=== PATIENT | male | born 1975 | race Caucasian/White ===

== ENCOUNTER 2021-10-10 19:05 | Emergency (ER) | payer OTHER, BC, SELFPAY ==
[2021-10-10 19:11] VITALS: BP 179/99; PULSE 81; RESP 18; TEMP 36.7; O2SAT 97; BMI 37.3
[2021-10-10] MEDS: Ibuprofen 600 MG TABLET PO (19:18)
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
== END 2021-10-10 22:38 | disposition home or self-care (01) ==
PROVIDERS: Emergency Provider Emergency Medicine Emergency Medical Services
DX: Z04.1 Encounter for examination and observation following transport accident (principal); M54.6 Pain in thoracic spine
CPT/HCPCS: 99282; 99283

== ENCOUNTER 2023-04-21 12:43 | Emergency (ER) | payer OTHER, SELFPAY ==
[2023-04-21 12:53] VITALS: BP 120/99; PULSE 92; RESP 20; TEMP 37.2; O2SAT 97; BMI 39.0
--- NOTE | 2023-04-21 12:54 | ED_ITS ---
HPI - General Adult General Chief complaint: Ear Problems Stated complaint: B/L Ear Infection Sore Throat Time Seen by Provider: 04/21/23 12:57 Source: patient Mode of arrival: ambulatory Limitations: no limitations History of Present Illness HPI narrative: Patient is a 47 year old assigned male at with no reported medical history presenting to the emergency department today with bilateral ear pain. Patient s tates that over the last 3 weeks he has felt like both of his ears are clogged and painful. Patient denies any dizziness, lightheadedness, abdominal pain, nausea, vomiting, fever, chills, blurry vision, double vision, loss of vision, chest pain, difficulty breathing, shortness of breath, back pain, night sweats, pain with urination, increased urinary frequency, increased urinary urgency, blood in his urine or stool, syncope or a near syncopal episode, recent trauma or falls, bowel incontinence, bladder incontinence, bowel retention, bladder retention, or any other complaints at this time. Onset (ago): week(s) (3) Severity: mild Relieving factors: none Exacerbating factors: none Associated symptoms: denies other symptoms Treatments prior to arrival: none Related Data Previous Rx's Medication Instructions Recorded ibuprofen 400 mg tablet 400 mg PO Q6H PRN pain #20 tabs 10/10/21 ciprofloxacin HCl 0.2 % ear drops 5 drp otic (ear) left BID 7 days 04/21/23 in a dropperette #14 ea doxycycline hyclate 100 mg tablet 100 mg PO BID 7 days #14 tabs 04/21/23 Allergies Allergy/AdvReac Type Severity Reaction Status Date / Time No Known Allergies Allergy Verified 10/10/21 19:11 Review of Systems Constitutional: Constitutional: Reports no additional constitutional complaints, Denies chills, Denies fever(s) and Denies night sweats Eyes: Eyes: Reports no additional eye complaints, Denies blurry vision, Denies change in vision, Denies diplopia, Denies eye discharge, Denies loss of vision and Denies eye pain ENT: Denies dizziness Comments: bilateral ear pain Cardiovascular: Cardiovascular: Reports no additional cardiovascular complaints, Denies chest pain, Denies lightheadedness, Denies Loss of Consciousness and Denies dyspnea Respiratory: Respiratory: Reports no additional respiratory complaints and Denies dyspnea Gastrointestinal: Gastrointestinal: Reports no additional gastrointestinal complaints, Denies abdominal pain, Denies melena, Denies hematochezia, Denies change in bowel habits and Denies change in stool character Genitourinary: Genitourinary: Reports no additional male genitourinary complaints, Denies hematuria, Denies oliguria, Denies difficulty urinating, Denies dysuria, Denies urinary frequency, Denies urinary hesitancy, Denies urinary incontinence and Denies urinary urgency Musculoskeletal: Musculoskeletal: Reports no additional musculoskeletal complaints, Denies numbness and Denies tingling Neurologic: Denies dizziness, Denies loss of vision, Denies numbness and Denies tingling Psychiatric: Psychiatric: Reports no additional psychiatric complaints Endocrine: Endocrine: Reports no additional endocrine complaints Hematologic/Lymphatic: Hematologic/Lymphatic: Reports no additional hematologic/lymphatic complaints Allergic/Immunologic: Allergic/Immunologic: Reports no additional allergic/immunologic complaints PMFSH Past Medical History Attestation statement: The following information was validated with the patient. Source: old records reviewed and nursing notes reviewed Social History Social History Advance Directives: No Advance Directives Information Provided: No Physical Exam ED Vital Signs: Vital Signs - 24 hr 04/21/23 12:53 Temperature 98.9 F Pulse Rate 92 Respiratory Rate 20 Blood Pressure 120/99 H Pulse Oximetry 97 Oxygen Delivery Method Room Air BMI result Body Mass Index 39.0 Const General: cooperative, no acute distress, alert and awake Nutritional Appearance: well nourished Orientation/consciousness: patient oriented x3 Limitations: no limitations HENMT Head: Yes normal to inspection and Yes atraumatic Ears: hearing grossly normal bilaterally, external ears normal and Abnormal EAC present edema on the left General nose exam: Normal external nose present, no nasal discharge noted and no epistaxis Face and sinus: Yes normal facial exam, No abrasion and No laceration Mouth: Normal oral and palatal mucosa present, no drooling and no muffled voice Eyes General: appearance normal, both eyes and all related structures Periorbital: periorbital findings normal Eyelids: Yes eyelids normal Conjunctivae: conjunctivae normal Pupils: Equal, round and reactive pupils present EOM: EOMs intact bilaterally Neck Neck: Yes normal visual inspection, Yes full ROM and Yes no lymphadenopathy Chest Chest palpation & inspection: normal inspection of the chest Resp Effort & Inspection: normal respiratory effort and able to speak in complete sentences GI Inspection: Yes normal to inspection Neuro General: patient oriented x3 and moves all extremities Cranial nerves: Yes Equal, round and reactive pupils present Cognition (Neuro): normal cognition Motor exam (neuro): 5/5 motor strength present throughout Sensory Exam: Normal double simultaneous stimulation for sensation Coordination: [id number] test normal Extrem General: Yes normal to inspection, Yes full ROM and Yes capillary refill normal Psych Appearance: grossly normal Mental Status: mental status grossly normal Affect: normal affect Attitude: cooperative Thought process: Normal thought process present Thought content: Normal thought content present Insight: Good insight present (Psych) Medical Decision Making Medical Decision Making MDM Narrative: Patient is a 47 year old assigned male at with no reported medical history presenting to the emergency department today with bilateral ear pain. Patient's physical exam showed a swollen left ear canal and nasal congestion. Patient's clinical presentation is most consistent with otitis externa of the left ear and sinusitis. I explained my physical exam findings to the patient. I answered all questions asked by the patient. I stressed the importance of the patient taking his medication as prescribed. I stressed the importance of the patient following up with his primary care provider and an ENT. I stressed the importance of the patient returning to the emergency department immediately if his symptoms were to worsen or if he were to develop any dizziness, shortness of breath, difficulty breathing, chest pain, blurry vision, loss of vision, nausea, vomiting, abdominal pain, fever, chills, back pain, or any other complaints. Patient verbalized agreement and understanding with this treatment plan and discharge. Differential Diagnosis Differential Diagnoses: The differential diagnosis associated with the presentation includes Left ear pain Right ear pain Nasal congestion Otitis media Otitis externa Sinusitis Prescription Management I considered prescription management with: Antibiotic (patient prescribed an antibiotic for his sinusitis and a drop for his otitis externa) Discharge Plan Discharge Clinical Impression: Otitis externa, Sinusitis Patient Disposition: Home, Self-Care Instructions: Sinusitis (ED), Otitis Externa (DC) Additional Instructions: Follow up with your primary care provider and an ENT. Return to the emergency department immediately if your symptoms worsen or if you develop any dizziness, shortness of breath, difficulty breathing, chest pain, blurry vision, loss of vision, nausea, vomiting, abdominal pain, fever, chills, back pain, or any other complaints. Prescriptions: New doxycycline hyclate 100 mg tablet 100 mg PO BID 7 Days Qty: 14 0RF ciprofloxacin HCl 0.2 % dropperette 5 drp otic (ear) left BID 7 Days Qty: 14 0RF No Action ibuprofen 400 mg tablet 400 mg PO Q6H PRN (Reason: pain) Qty: 20 0RF Referrals: [facility] [place] Family Medicine [Provider Group] (Call to establish and follow up with a primary care provider. If you already have a primary care provider, please follow up with them.) [facility] [place] Primary Care, Andrei [Provider Group] (Call to establish and follow up with a primary care provider. If you already have a primary care provider, please follow up with them.) [facility] [place] Primary Care,Natan [Provider Group] (Call to establish and follow up with a primary care provider. If you already have a primary care provider, please follow up with them.) Elvis Buchanan [Physician] - (Call to establish and follow up with an ENT specialist) Interventions: ED Discharge Assessment Last Done: 04/21/23 13:07 Discharge Date/Time: 04/21/23 13:07 Print Language: Setswana
== END 2023-04-21 13:07 | disposition home or self-care (01) ==
PROVIDERS: Emergency Provider Emergency Medicine Emergency Medical Services
DX: H92.03 Otalgia, bilateral (principal); J32.9 Chronic sinusitis, unspecified; Z79.899 Other long term (current) drug therapy
CPT/HCPCS: 99282; 99283

== ENCOUNTER 2023-11-04 11:33 | Emergency (ER) | payer OTHER, SELFPAY ==
[2023-11-04 11:37] VITALS: BP 162/113; PULSE 78; RESP 18; TEMP 36.7; O2SAT 96; BMI 43.8
--- NOTE | 2023-11-04 11:38 | ED.UPPEXIN ---
HPI - Extremity Injury (Upper) General Chief Complaint: Extremity Injury, Upper Stated Complaint: bi lateral forearm pain, no injury Source: patient Mode of arrival: ambulatory Limitations: no limitations History of Present Illness ED Provider: SHITAL BERGER PA-C HPI narrative: 48-year-old male with no significant PMHX presents to the ED today for evaluation of bilateral wrist pain x2 days. Reports numbness to his fingers along with shooting pain originating in his wrists. No radiation up the extremities. Pain is exacerbated with movement of the wrists. Pain is worse at night while sleeping. He reports difficulty grasping objects. Denies injury or trauma. 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 Denies fever, chills, joint pain/ swelling. Of note, patient hypertensive in triage however states he did not take his BP medications this morning. He also took 3 motrin prior to arrival which is likely elevating his BP. He denies headache, dizziness, vision changes, chest pain, palpitations, SOB. Related Data Previous Rx's ?Medication ?Instructions ?Recorded ibuprofen 400 mg tablet 400 mg PO Q6H PRN pain #20 tabs 10/10/21 ciprofloxacin HCl 0.2 % ear drops 5 drp otic (ear) left BID 7 days 04/21/23 in a dropperette #14 ea doxycycline hyclate 100 mg tablet 100 mg PO BID 7 days #14 tabs 04/21/23 gabapentin 100 mg capsule 100 mg PO BID 2 weeks #28 caps 11/04/23 Allergies Allergy/AdvReac Type Severity Reaction Status Date / Time No Known Allergies Allergy Verified 11/04/23 11:37 Review of Systems Review of Systems: Constitutional: No fever, chills, fatigue, night sweats, weight changes ENT/Mouth: No ear pain, hearing loss, nasal congestion, sinus pain, rhinorrhea, sore throat Eyes: No eye pain, swelling, redness, vision changes, discharge Cardio: No chest pain, palpitations, SPEARS, orthopnea, peripheral edema Pulm: No SOB, cough, sputum, wheezing, dyspnea, hemoptysis GI: No nausea, vomiting, hematemesis, abdominal pain, diarrhea, constipation, hematochezia, melena : No irregular bleeding, dysuria, frequency, urgency, hesitancy, hematuria, flank pain, urinary flow changes, urinary incontinence or retention MSK: No back pain, neck pain, joint pain, myalgias, +bilateral wrist pain Skin: No lesions, rashes Neuro: No weakness, paresthesias, LOC, dizziness, headache, +numbness Psych: No anxiety/panic, depression, SI/HI, AH/VH All other systems reviewed and are negative. [facility] Past Medical History Attestation statement: The following information was validated with the patient. Source: old records reviewed and nursing notes reviewed Physical Exam Vital Signs: Vital Signs: patient hypertensive, vitals otherwise wnl Const: General: cooperative, healthy appearing, comfortable and no acute distress Orientation/consciousness: patient oriented x3 Limitations: no limitations HEENT: Head: Yes normal to inspection, Yes No palpable skull fracture present, Yes normocephalic and Yes atraumatic Eyes: General: appearance normal, both eyes and all related structures Pupils: Equal, round and reactive pupils present Neck: Neck: Yes normal visual inspection, Yes full ROM and Yes no lymphadenopathy Resp: Effort & Inspection: normal respiratory effort and able to speak in complete sentences Cardio: Rate: regular rate Rhythm: regular rhythm Back/Spine/Pelvis: Other: No midline spinous tenderness or step off deformity. No paraspinal muscle tenderness. Skin: General skin exam: no rashes or lesions noted Neuro: Other: + no overlying skin changes, swelling, or deformity noted to bilateral wrists/hands. No tenderness to palpation. No palpable warmth, crepitus, fluctuance. bilateral clinical product specialist strength 4/5. positive tinel and phalen sign. FROM to bilateral wrists and digits intact. sensation intact. no thenar atrophy. 2+ radial/ulnar pulses intact bilaterally General: patient oriented x3 Cranial nerves: Yes Equal, round and reactive pupils present Course Course Course Narrative: 1150-- patient's physical exam is consistent with carpal tunnel syndrome. Wrist braces supplied. Will send gabapentin to pharmacy for pain. Advised to take Tylenol. Neurology referral provided for follow-up. Patient is noted to be hypertensive however is asymptomatic at this time. advised to avoid motrin as this can further elevate his BP. Patient has remained stable throughout ED visit today. Discussed worrisome signs and symptoms and when to return to the ED. All questions answered at this time. Patient is agreeable with disposition and stable for discharge. Medical Decision Making Medical Decision Making MDM Narrative: 48-year-old male with no significant PMHX presents to the ED today for evaluation of bilateral wrist pain x2 days. Patient hypertensive to 162/113 however did not take his BP meds and is noted to have taken 3 motrin [place] in ED, likely elevating his BP. He is asymptomatic. On exam of extremities, no overlying skin changes, swelling, or deformity noted to bilateral wrists/hands. No tenderness to palpation. No palpable warmth, crepitus, fluctuance. bilateral clinical product specialist strength 4/5. positive tinel and phalen sign. FROM to bilateral wrists and digits intact. sensation intact. no thenar atrophy. 2+ radial/ulnar pulses intact bilaterally. skin w/d/i. no rashes. no midline spinous tenderness or step off deformity. Differential diagnosis includes carpal tunnel syndrome. Lower suspicion for cervical radiculopathy. Unlikely fracture, dislocation, neurovascular compromise, compartment syndrome, gout, pseudogout, threat to limb. Plan for discharge. Differential Diagnosis Differential Diagnoses: The differential diagnosis associated with the presentation includes as above. Admission/Observation not indicated. Tests considered The following testing was considered but not selected: I considered ordering XRs however no trauma/ injury reported, exam consistent with carpal tunnel, not warranted at this time. Prescription Management I considered prescription management with: Pain Medication (gabapentin) Social Determinants Patient?s care significantly limited by Social Determinants of Health including: Other Social Determinant of Health Procedures Orthopedic Splinting/Casting Injury #1: Side: right Upper Extremity Injury Location: wrist Upper Extremity Immobilizer: wrist splint Injury #2: Side: left Upper Extremity Injury Location: wrist Upper Extremity Immobilizer: wrist splint Critical Care Time Critical Care Time Critical Care Time: No Discharge Plan Discharge Clinical Impression: Carpal tunnel syndrome on both sides Patient Disposition: Home, Self-Care Instructions: Carpal Tunnel Surgery (DC), Electromyography (DC) Additional Instructions: You were seen in the ED today for right and left wrist pain. You have carpal tunnel. A short course of gabapentin (nerve pain medication) has been sent to your pharmacy for you to take daily for pain control. You may also take tylenol as needed for pain. You were provided with 2 wrist braces today. It's important to wear these, especially at night, to limit the positions your wrist is in. Follow up with your PCP. You have also been provided a referral to neurologist. You may follow up as needed. Return with new or worsening symptoms. In the case of an emergency call 911/ Prescriptions: New gabapentin 100 mg capsule 100 mg PO BID 14 Days Qty: 28 0RF No Action ibuprofen 400 mg tablet 400 mg PO Q6H PRN (Reason: pain) Qty: 20 0RF doxycycline hyclate 100 mg tablet 100 mg PO BID 7 Days Qty: 14 0RF ciprofloxacin HCl 0.2 % dropperette 5 drp otic (ear) left BID 7 Days Qty: 14 0RF Referrals: [facility] [place] Neuro/Sleep [Provider Group] Virginia Henry MD [Primary Care Provider] - Stand Alone Forms: Work/School Release Interventions: ED Discharge Assessment Last Done: 11/04/23 11:56 Discharge Date/Time: 11/04/23 11:58 Print Language: [place]
[2023-11-04 11:56] VITALS: BP 162/113; PULSE 78; RESP 18; TEMP 36.7; O2SAT 96
[2023-11-04 12:00] VITALS: BP 162/113; PULSE 78; RESP 18; TEMP 36.7; O2SAT 96
== END 2023-11-04 12:00 | disposition home or self-care (01) ==
PROVIDERS: Emergency Provider Emergency Medicine; PCP Internal Medicine
DX: G56.03 Carpal tunnel syndrome, bilateral upper limbs (principal)
CPT/HCPCS: 99283

== ENCOUNTER 2024-12-13 16:38 | Emergency (ER) | payer OTHER, SELFPAY ==
[2024-12-13 17:21] VITALS: BP 134/82; PULSE 73; RESP 18; TEMP 36.7; O2SAT 98; BMI 35.7
--- NOTE | 2024-12-13 17:36 | ED_ITS ---
HPI - General Adult General Chief complaint: Wound/Laceration Stated complaint: navel infection Time Seen by Provider: 12/13/24 23:00 Source: patient Mode of arrival: ambulatory Limitations: no limitations History of Present Illness ED Provider: HPI narrative: Patient is status post abdominoplasty and excess skin removal on 11/28 comes here as having discharge from the umbilical area for last 1 week which is yellowish and foul-smelling no fever no chills patient is otherwise feel better Related Data Previous Rx's ?Medication ?Instructions ?Recorded ibuprofen 400 mg tablet 400 mg PO Q6H PRN pain #20 t abs 10/10/21 ciprofloxacin HCl 0.2 % ear drops 5 drp otic (ear) lef t BID 7 days 04/21/23 in a dropperette #14 ea doxycycline hyclate 100 mg tablet 100 mg PO BID 7 days #14 tabs 04/21/23 gabapentin 100 mg capsule 100 mg PO BID 2 weeks #28 ca ps 11/04/23 cephalexin 500 mg capsule 500 mg PO QID 10 days #40 ca ps 12/13/24 doxycycline hyclate 100 mg tablet 100 mg PO BID #20 ta bs 12/13/24 Allergies Allergy/AdvReac Type Severity Reaction Status Date / Time No Known Allergies Allergy Verified 12/13/24 17:21 Review of Systems 2 Review of Systems: Yes all other systems are reviewed and are negative Physical Exam ED Vital Signs: Vital Signs - 24 hr 12/13/24 17:21 12/13/24 22:54 Temperature 98.0 F 98.7 F Pulse Rate 73 67 Respiratory Rate 18 20 Blood Pressure 134/82 138/99 H Pulse Oximetry 98 95 Oxygen Delivery Method Room Air Room Air BMI result Body Mass Index 35.7 Appearance: Alert. Oriented X3. No acute distress. Eyes: no pallor or icterus ENT: Pharynx normal Oral Mucosa moist tympanic membrane intact no erythema, Neck: Normal inspection. Neck supple. CVS: Normal heart rate and rhythm. Pulses normal. Respiratory: No respiratory distress. Equal air entry bilateral, Abd: soft, not tender Skin: Skin warm and dry. Normal skin color. Normal skin turgor. Open umbilicus area with purulent discharge Extremities: No lower extremity edema, no calf tenderness Neuro: Oriented X 3. GI Abdomen image: 2 1. Open umbilical area with small amount of purulent discharge ultrasound negative for large fluid collection Course Course Course Narrative: RME performed by Katy Soto PA-C. Patient is a 49 year old assigned male at presenting to the emergency department with concerns for infection of his belly button. Patient states that he had an excess skin removal surgery and his new naval area has pus in the area and is erythematous. Detailed physical exam and review of systems are deferred to the health actuary. Labs ordered. Patient placed back in the waiting room pending room availability and results. Medications Administered Discontinued Medications Generic Name Dose Route Start Last Admin Trade Name Freq PRN Reason Stop Dose Admin Cephalexin HCl 500 mg 12/13/24 23:11 12/13/24 23:23 Cephalexin 500 Mg Capsule PO 12/13/24 23:12 500 mg ONCE ONE Administration Doxycycline Monohydrate 100 mg 12/13/24 23:11 12/13/24 23:23 Doxycycline Monohydrate 100 Mg Capsule PO 12/13/24 23:12 100 mg ONCE ONE Administration Medical Decision Making Medical Decision Making [facility] Narrative: Patient's postop abdominal plasty with seroma with small amount of purulent discharge at the umbilical area ultrasound bedside did not reveal any large fluid collection will start patient on doxycycline cephalexin advised to follow up with surgeon Lab Data MDM Lab Attestation statement: I reviewed the patient's lab results. 12/13/24 17:35 12/13/24 17:35 Labs: Lab Results 12/13/24 12/13/24 Range/Units 17:35 17:57 WBC 12.0 H (4.8-10.8) X10*3/uL RBC 5.34 (4.60-5.80) X10*6/uL Hgb 14.3 (14.0-18.0) g/dl Hct 42.7 (42.0-52.0) % MCV 80.0 (80.0-98.0) fL MCH 26.8 L (27.0-33.0) pg MCHC 33.5 (31.0-36.0) g/dl RDW 14.3 (11.0-16.0) % Plt Count 349 (160-400) X10*3/uL MPV 11.1 (9.4-12.4) fL Immature Gran % (Auto) 0.4 (0.0-0.4) % Neut % (Auto) 69.6 (45-73) % Lymph % (Auto) 22.0 (20-40) % Christian % (Auto) 4.5 (2-11) % Eos % (Auto) 2.9 (0-4) % Baso % (Auto) 0.6 (0-2) % Lymph # (Auto) 2.7 (1.2-4.9) X10*3/uL Christian # (Auto) 0.5 (0.1-1.2) X10*3/uL Eos # (Auto) 0.4 (0.0-0.4) X10*3/uL Baso # (Auto) 0.1 (0.0-0.2) X10*3/uL Abs Immat Gran (auto) 0.05 H (0.00-0.03) X10*3/uL Absolute Neuts (auto) 8.4 H (2.0-8.3) x10*3/uL Absolute Nucleated RBC 0.000 (0.0-0.012) X10*3/uL Nucleated RBC % (auto) 0.0 (0.0-0.2) /100WBC ESR 16 H (0-15) MM/HR Sodium 140 (135-145) mmol/L Potassium 4.2 (3.3-5.1) mmol/L Chloride 106 (96-108) mmol/L Carbon Dioxide 27 (22-29) mmol/L Anion Gap 11 L (12-20) BUN 16 (9-16) mg/dL Creatinine 1.10 (0.5-1.4) mg/dL Estim Creat Clear Calc 107.5 Estimated GFR > 60 Random Glucose 88 (60-115) mg/dL Calcium 8.9 (8.4-10.2) mg/dL Total Bilirubin 0.3 (0.0-1.0) mg/dL AST 23 (5-37) U/L ALT 30 (0-40) U/L Alkaline Phosphatase 78 (39-117) U/L C-Reactive Protein 0.86 H (< or = 0.50) mg/dL Total Protein 7.4 (6.5-8.0) g/dL Albumin 4.3 (3.5-5.0) g/dL Discharge Plan Discharge Clinical Impression: Postoperative wound infection Patient Disposition: Home, Self-Care Instructions: Surgical Site Infections (ED) Additional Instructions: Local care as advised Take antibiotics as prescribed Follow up with your surgeon if does not get better or high fever or worsening of the pain or swelling Prescriptions: New cephalexin 500 mg capsule 500 mg PO QID 10 Days Qty: 40 0RF doxycycline hyclate 100 mg tablet 100 mg PO BID Qty: 20 0RF No Action ibuprofen 400 mg tablet 400 mg PO Q6H PRN (Reason: pain) Qty: 20 0RF doxycycline hyclate 100 mg tablet 100 mg PO BID 7 Days Qty: 14 0RF ciprofloxacin HCl 0.2 % dropperette 5 drp otic (ear) left BID 7 Days Qty: 14 0RF gabapentin 100 mg capsule 100 mg PO BID 14 Days Qty: 28 0RF Print Language: Occitan
[2024-12-13 17:39] LABS: MANUAL DIFF FLAG NO
[2024-12-13 17:42] LABS: Hematocrit 42.7 % (42.0-52.0); Hemoglobin 14.3 g/dl (14.0-18.0); Imm Gran Abs Auto 0.05 X10*3/uL (0.00-0.03); Imm Gran Pct Auto 0.4 % (0.0-0.4); Lymphocytes Absolute Auto 2.7 X10*3/uL (1.2-4.9); Mean Corpuscular HGB Conc 33.5 g/dl (31.0-36.0); Mean Corpuscular Hemoglobin 26.8 pg (27.0-33.0); Mean Corpuscular Volume 80.0 fL (80.0-98.0); NRBC Abs Auto 0.000 X10*3/uL (0.0-0.012); NRBC Pct Auto 0.0 /100WBC (0.0-0.2); Platelet Count 349 X10*3/uL (160-400); Red Blood Count 5.34 X10*6/uL (4.60-5.80); White Blood Count 12.0 X10*3/uL (4.8-10.8)
[2024-12-13 17:59] LABS: Alanine Aminotransferase 30 U/L (0-40); Albumin Level 4.3 g/dL (3.5-5.0); Alkaline Phosphatase 78 U/L (39-117); Anion Gap 11 (12-20); Aspartate Amino Transferase 23 U/L (5-37); Blood Urea Nitrogen 16 mg/dL (9-16); Calcium 8.9 mg/dL (8.4-10.2); Carbon Dioxide 27 mmol/L (22-29); Chloride 106 mmol/L (96-108); Creatinine Clr Calc Pharmacy 107.5; Estimated Glomerular Filt Rate > 60; Potassium 4.2 mmol/L (3.3-5.1); Sodium 140 mmol/L (135-145); Total Protein 7.4 g/dL (6.5-8.0)
[2024-12-13 22:54] VITALS: BP 138/99; PULSE 67; RESP 20; TEMP 37.1; O2SAT 95
[2024-12-13 23:44] VITALS: BP 138/99; PULSE 67; RESP 20; TEMP 37.1; O2SAT 95
== END 2024-12-13 23:45 | disposition home or self-care (01) ==
PROVIDERS: Physician Assistant Medical; Emergency Provider Internal Medicine
DX: T81.49XA Infection following a procedure, other surgical site, initial encounter (principal); L08.82 Omphalitis not of newborn; Y83.8 Other surgical procedures as the cause of abnormal reaction of the patient, or of later complication, without mention of misadventure at the time of the procedure; Y92.9 Unspecified place or not applicable
CPT/HCPCS: 36415; 80053; 85025; 85652; 86140; 99283; 99284